=== PATIENT | female | born 1940 | race Two or more races ===

== ENCOUNTER 2021-03-31 06:20 | Day surgery (SDC) | payer OTHER ==
[~2021-03-31 06:20] MED LIST: ADULT LOW DOSE81 M1 PO; LEVSIN0.125 MG PO; SIMVASTA PO; TIROSINT100 MCG PO; TOPROL XL25 M1 PO; ZESTRIL30 MG PO
== END 2021-03-31 21:05 | disposition home or self-care (01) ==
LOC: CIR.AMB 06:20
PROVIDERS: ATTEND Surgery
DX: D05.02 Lobular carcinoma in situ of left breast (principal); Z20.822 Contact with and (suspected) exposure to COVID-19